=== PATIENT | female | born 1950 | race Two or more races ===

== ENCOUNTER 2016-11-05 09:16 | Inpatient (IN) | payer OTHER ==
[2016-10-30 14:56] VITALS: BMI 34.7
[2016-11-05] MEDS ORDERED: GABAPENTIN 300 MG CAPSULE (FP) PO ONE (09:33)
[2016-11-05] MEDS ORDERED: CEFAZOLIN 2 GM in DEXTROSE 5%-WATER - 100 ML IVPB ONE (09:33)
[2016-11-05] MEDS ORDERED: oxyCODONE HCL 10 MG SUSTAINED ACTING TABLET PO STA (09:33)
[2016-11-05] MEDS ORDERED: GELATIN, ABSORBABLE 100 EACH SPONGE TP ONE (12:17)
[2016-11-05] MEDS ORDERED: THROMBIN (BOVINE) 5,000 UNIT VIAL TP ONE (12:17)
[2016-11-05] MEDS ORDERED: LIDOCAINE 1%-EPI 1:100,000 30 ML MDV IJ ONE ×2 (12:17)
[2016-11-05] MEDS ORDERED: PROPOFOL 20 ML ONE ×5 (12:38→15:27)
[2016-11-05] MEDS ORDERED: MIDAZOLAM HCL 2 MG/2 ML SINGLE DOSE VIAL ONE (12:38)
[2016-11-05] MEDS ORDERED: ONDANSETRON 4 MG/2 ML VIAL ONE (12:38)
[2016-11-05] MEDS ORDERED: ceFAZolin SODIUM 1 GM VIAL ONE ×2 (12:38→13:40)
[2016-11-05] MEDS ORDERED: DEXAMETHASONE SOD PHOSPHATE 4 MG/1 ML VIAL ONE (12:38)
[2016-11-05] MEDS ORDERED: KETOROLAC TROMETHAMINE 30 MG/1 ML VIAL ONE (12:38)
[2016-11-05] MEDS ORDERED: ROCURONIUM BROMIDE 50 MG/5 ML VIAL ONE (12:38)
[2016-11-05] MEDS ORDERED: LIDOCAINE HCL/PF 2% SDV 5ML VIAL ONE (12:38)
[2016-11-05] MEDS ORDERED: BUPIVACAINE HCL/PF 2.5 MG/ML - 30 ML VIAL IJ ONE (12:56)
--- NOTE | 2016-11-05 13:15 | HP ---
History & Physical Update - History History: No Change - Physical Physical: No Change - Assessment Assessment: No Change - Plan Plan: No Change (Prior to surgery, c/o low back pain radiating down RLE. This is my first time meeting the patient. i informed her that I iwill be assisting Dr. Robison for the procedure today. Patient is fine with that.)
[2016-11-05] MEDS ORDERED: LIDOCAINE 1%/EPI 1:100000 (50 ML MULTI DOSE VIAL) INF ONE (13:55)
[2016-11-05] MEDS ORDERED: NEOSTIGMINE METHYLSULFATE 0.5 MG/ML - 10 ML MDV ONE (15:44)
[2016-11-05] MEDS ORDERED: BUPIVACAINE HCL/PF 0.25% (2.5MG/ML) 10 ML VIAL IJ ONE (16:00)
[2016-11-05] MEDS ORDERED: ONDANSETRON 4 MG/2 ML VIAL IVPB PRN (16:12)
[2016-11-05] MEDS ORDERED: CYCLOBENZAPRINE HCL 10 MG TABLET (FP) PO PRN (16:12)
[2016-11-05] MEDS ORDERED: morphine CARPU-JECT 4 MG/1 ML DISP.SYRIN IVPUSH PRN (16:12)
[2016-11-05] MEDS ORDERED: oxyCODONE HCL 5 MG TABLET PO PRN (16:12)
[2016-11-05] MEDS ORDERED: LACTATED RINGERS SOLUTION 1,000 ML IV SCH (16:15)
[2016-11-05] MEDS ORDERED: traMADol HCL 50 MG TABLET PO PRN (16:15)
[2016-11-05] MEDS: KETOROLAC TROMETHAMINE 30 MG/1 ML VIAL IVPUSH PRN ×2 (16:35→22:46)
[2016-11-05] MEDS: diazePAM CARPU-JECT 10 MG/2 ML DISP.SYRIN IVPUSH ONE ×2 (16:37→21:43)
[2016-11-05] MEDS: ACETAMINOPHEN 1000 MG/100 ML VIAL (NON FORMULARY) IVPB SCH ×3 (16:45→23:53)
--- NOTE | 2016-11-05 18:53 | OP ---
Operative Note - Note: Operative Date: 11/05/16 Pre-Operative Diagnosis: Spondylolithesis with lumbar radiculopathy Operation: TLIF L5-S1 Post-Operative Diagnosis: Same as Pre-op Surgeon: Blake Robison Concrete Analyst: Chetan Villalba Anesthesiologist/LANDSCAPE HORTICULTURE INSTRUCTOR: Rolando Oliver Anesthesia: General Estimated Blood Loss (mls): 20 Fluid Volume Replaced (mls): 1,000 Operative Report Dictated: Yes
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
[2016-11-05] MEDS: CEFAZOLIN (PRE-DOCKED) 50 ML IVPB SCH (21:23)
[2016-11-05] MEDS: oxyCODONE HCL 5 MG TABLET PO PRN (21:24)
[2016-11-05] MEDS: diphenhydrAMINE HCL 25 MG CAPSULE (FP) PO SCH (21:24)
[2016-11-05] MEDS: INSULIN DETEMIR 100 UNITS/ML MDV SQ SCH ×2 (21:25→22:48)
[2016-11-05] MEDS: GABAPENTIN 300 MG CAPSULE (FP) PO SCH (21:25)
[2016-11-05] MEDS: EPOETIN ALFA 40,000 UNIT/1 ML VIAL SQ SCH (21:43)
[2016-11-05] MEDS ORDERED: PATIENT'S OWN MEDICATION (NON-FORMULARY) (Insulin Glargine,Hum.Rec.Anlog 15 UNITS) SQ SCH ×2 (22:00)
[2016-11-05] MEDS ORDERED: PATIENT'S OWN MEDICATION (NON-FORMULARY) (Gabapentin [Gabapentin] 600 MG) PO SCH (22:00)
[2016-11-06] MEDS: oxyCODONE HCL 5 MG TABLET PO PRN ×2 (03:39→21:49)
[2016-11-06] MEDS: ACETAMINOPHEN 1000 MG/100 ML VIAL (NON FORMULARY) IVPB SCH (04:35)
[2016-11-06] MEDS: CEFAZOLIN (PRE-DOCKED) 50 ML IVPB SCH (04:35)
[2016-11-06] MEDS: GABAPENTIN 300 MG CAPSULE (FP) PO SCH ×3 (05:06→21:49)
[2016-11-06] MEDS: diphenhydrAMINE HCL 25 MG CAPSULE (FP) PO SCH ×2 (05:06→14:00)
[2016-11-06] MEDS: FUROSEMIDE 40 MG TABLET (FP) PO SCH (05:06)
[2016-11-06] MEDS ORDERED: ACETAMINOPHEN 325 MG TABLET (FP) PO SCH (06:00)
[2016-11-06] MEDS: metFORMIN HCL 500 MG TABLET (FP) PO SCH ×2 (08:45→16:30)
[2016-11-06 08:48] LABS: ANION GAP 5 (8-16); CALCIUM 8.2 mg/dl (8.4-10.2); CO2 25 mmol/L (22-28); CREATININE 0.9 mg/dl (0.6-1.3); GLUCOSE,RANDOM 93 mg/dl (74-106)
--- NOTE | 2016-11-06 09:15 | PN ---
Progress Note (short form) - Note Progress Note: POD#1 Pt seen earlier this am and then after breakfast. She had nausea and emesis after breakfast. No CP or SOB. She is ambulating and voiding on her own. Vital Signs Period Temp Pulse Resp BP Sys/Bassett Pulse Ox Last 24 Hr 98.0 F-98.8 F 75-94 12-20 82-149/42-99 100-100 ADRIANA-265 serosangrenous PE: GEN: A&0x3 CV: RRR Lungs: CTA b/l Back: dressing c/d/i ABD: soft, non-distended, non-tender Neuro: aitchbone breaker strength equal b/l, dorsi/plantar/EHL flexion 5/5 b/l. LE: no calf tenderness or swelling noted b/l to LE CBC, BMP 11/06/16 07:45 Laboratory Tests 11/05/16 11/06/16 21:33 06:40 POC Glucometer 103 97 A/P: 66 yo female s/p TLIF L5-S1, POD#1 Plan for PT today Will continue the drain, out serosangrenous but high over night, continue to monitor the outpt OOB and ambulate xray cancelled, will complete xray after drain removed pain management, standing ultram/tylenol and oxycodne prn IV zofran for nausea, nursing staff holding oral diabetic medications until intake ok D/w Dr. Robison, will monitor progress with PT today. Pt normally ambulates with a walker Discontinue LR Addendum: Pts H&H low from this morning labs and on repeat values. 2 units of PRBC ordered and called lab, blood should be ready around 1700. Her night lasix dose on hold. The patient is receiving a bolus x1 now. Repeat blood pressure 89/46. She has no CP, SOB and denies dizziness. I spoke with the medical team for a consult, they have requested troponin/ekg to be done now and at 2200 and agree with PRBC. The patient has a history of anemia, on procrit with a starting H&H of 01/08. Dr. Robison was updated on his pt's condition and agrees with the above treatment. <Cassidy Freitas - Last Filed: 11/06/16 16:09> - Note Progress Note: Patient seen and examined Agree with Above Maintain drain PT <Blake Robison - Last Filed: 11/08/16 11:56>
[2016-11-06] MEDS ORDERED: PATIENT'S OWN MEDICATION (NON-FORMULARY) (Spironolactone [Spironolactone] 100 MG) PO SCH (10:00)
[2016-11-06] MEDS: CALCITRIOL 0.25 MCG CAPSULE (FP) PO SCH (10:00)
[2016-11-06] MEDS: ATENOLOL 50 MG TABLET (FP) PO SCH ×2 (10:00)
[2016-11-06] MEDS ORDERED: POTASSIUM CHLORIDE TABS 20 MEQ TABLET.ER (FP) PO SCH (10:00)
[2016-11-06] MEDS: SPIRONOLACTONE 25 MG TABLET (FP) PO SCH (10:00)
[2016-11-06] MEDS ORDERED: LISINOPRIL 20 MG TABLET (FP) PO SCH (10:00)
[2016-11-06] MEDS ORDERED: CHOLECALCIFEROL (VITAMIN D3) 1,000 UNIT TABLET (FP) PO SCH (10:00)
[2016-11-06] MEDS ORDERED: PATIENT'S OWN MEDICATION (NON-FORMULARY) (Potassium Chloride [Potassium Chloride] 20 MEQ) PO SCH (10:00)
[2016-11-06] MEDS: PANTOPRAZOLE 40 MG TABLET (FP) PO SCH (10:00)
[2016-11-06] MEDS: traMADol HCL 50 MG TABLET PO SCH ×2 (10:15→21:50)
[2016-11-06] MEDS: ACETAMINOPHEN 325 MG TABLET (FP) PO SCH (10:15)
[2016-11-06] MEDS ORDERED: traMADol HCL 50 MG TABLET PO SCH (12:00)
[2016-11-06 12:48] LABS: MCH 21.3 pg (25.7-33.7); MCHC 30.3 g/dl (32.0-36.0); MEAN CELL VOLUME 70.4 fl (80-96); MEAN PLT VOLUME 8.4 fl (7.5-11.1); PLATELET COUNT 161 K/MM3 (134-434); RDW 18.6 % (11.6-15.6); WHITE BLOOD COUNT 4.6 K/mm3 (4.0-10.8)
[2016-11-06 15:39] LABS: MCH 21.5 pg (25.7-33.7); MCHC 30.6 g/dl (32.0-36.0); MEAN CELL VOLUME 70.4 fl (80-96); MEAN PLT VOLUME 8.1 fl (7.5-11.1); PLATELET COUNT 143 K/MM3 (134-434); RDW 18.3 % (11.6-15.6); WHITE BLOOD COUNT 4.6 K/mm3 (4.0-10.8)
[2016-11-06] MEDS ORDERED: SODIUM CHLORIDE 500 ML IV STA (15:45)
[2016-11-06 17:16] LABS: CPK(DFH) 813 IU/L (26-140)
[2016-11-06] MEDS ORDERED: SODIUM CHLORIDE 0.9% 500 ML INFUS.BAG IV ONE (17:44)
[2016-11-06 17:46] LABS: TROPONIN I (DFP) < 0.03 ng/ml (0.03-0.50)
[2016-11-06 17:47] LABS: CK MB 19.2 ng/ml (0.3-4.0)
[2016-11-06] MEDS ORDERED: ACETAMINOPHEN 325 MG TABLET (FP) PO ONE (18:45)
[2016-11-06] MEDS ORDERED: diphenhydrAMINE HCL 25 MG CAPSULE (FP) PO ONE (18:45)
[2016-11-06] MEDS: INSULIN DETEMIR 100 UNITS/ML MDV SQ SCH (22:16)
--- NOTE | 2016-11-06 22:23 | CONSULT ---
Consultation: REQUESTING PROVIDER: Dr. Robison CONSULT REQUEST: We have been asked to medically evaluate this patient for postoperative anemia and hypotension. HISTORY OF PRESENT ILLNESS: This is a 66 year old female with extensive PMH as below who presented to the hospital for spine surgery. She underwent posterior TLIF L5-S1 yesterday. Initially today, pt appeared well and was normotensive. She received her normal home BP medications and was noted to be hypotensive later in the day around 230. Her Hgb on am labs was 6.2, down from 7.1 on preop labs. Repeat Hgb was 5.8. 2uPRBC were ordered. She is currently completing her first unit of blood. She reports feeling ok, just with pain. Denies any lightheadedness or dizziness and reports ambulating around the unit this morning. Noted with increased serosanguinous output from drain last night. Past Medical History anemia on procrit-has been anemic for 30+ years, but worsened after bariatric surgery CHF, RV failure venous insufficiency HTN DM with neuropathy and PVD Hepatitis C with cirrhosis aortic stenosis/insufficiency MR/TR gastritis renal insufficiency, worsened by excessive lasix use in past as per pt, followed by renal Past Surgical History hysterectomy bariatric sx 2007 cholecystectomy 2013 R knee arthroscopy B/L TKR Active Medications 3 Generic Name Dose Route Start Last Admin Trade Name Freq PRN Reason Stop Dose Admin Acetaminophen 650 mg 11/06/16 10:15 11/06/16 10:15 Tylenol - PO 650 mg Q8H OSEAS Administration Calcitriol 0.25 mcg 11/06/16 10:00 11/06/16 10:00 Rocaltrol - PO 0.25 mcg DAILY OSEAS Administration Diphenhydramine HCl 25 mg 11/05/16 22:00 11/06/16 14:00 Benadryl - PO Not Given TID OSEAS Epoetin Asa 40,000 unit 11/05/16 17:00 11/05/16 21:43 Procrit - SQ Not Given BIDISMO OSEAS Gabapentin 300 mg 11/05/16 22:00 11/06/16 21:49 Neurontin - PO 300 mg TID OSEAS Administration Insulin Detemir 15 units 11/05/16 22:00 11/05/16 22:48 Levemir Vial SQ Not Given HS OSEAS Metformin HCl 500 mg 11/06/16 08:45 11/06/16 16:30 Glucophage - PO Not Given BIDI [facility] Morphine Sulfate 4 mg 11/05/16 16:12 11/06/16 05:04 Morphine Injection - IVPUSH 4 mg Q4H PRN Administration PAIN Ondansetron HCl 4 mg 11/05/16 16:12 Zofran Injection IVPB Q6H PRN NAUSEA AND/OR VOMITING Oxycodone HCl 10 mg 11/05/16 16:12 11/06/16 21:49 Roxicodone - PO 10 mg Q4H PRN Administration PAIN Oxycodone HCl 5 mg 11/05/16 16:12 Roxicodone - PO Q4H PRN PAIN Pantoprazole Sodium 40 mg 11/06/16 10:00 11/06/16 10:00 Protonix - PO 40 mg DAILY [facility] Administration Pioglitazone HCl 15 mg 11/06/16 07:00 Actos - PO ACBK [facility] Sodium Chloride 100 ml 11/06/16 17:44 11/06/16 14:30 Normal Saline - IV 11/06/16 17:45 100 ml ONCE ONE Administration Spironolactone 100 mg 11/06/16 10:00 11/06/16 10:00 Aldactone - PO 100 mg DAILY [facility] Administration Tramadol HCl 50 mg 11/06/16 10:15 11/06/16 21:50 Ultram - PO 50 mg Q6H [facility] Administration REVIEW OF SYSTEMS: CONSTITUTIONAL: Absent: fever, chills, diaphoresis, generalized weakness, malaise, loss of appetite, weight change HEENT: Absent: rhinorrhea, nasal congestion, throat pain, throat swelling, difficulty swallowing, mouth swelling, ear pain, eye pain, visual changes CARDIOVASCULAR: Absent: chest pain, syncope, palpitations, irregular heart rate, lightheadedness , peripheral edema RESPIRATORY: Absent: cough, shortness of breath, dyspnea with exertion, orthopnea, wheezing, stridor, hemoptysis GASTROINTESTINAL: Absent: abdominal pain, abdominal distension, nausea, vomiting, diarrhea, constipation, melena, hematochezia GENITOURINARY: Absent: dysuria, frequency, urgency, hesitancy, hematuria, flank pain, genital pain MUSCULOSKELETAL: present: back pain Absent: myalgia, arthralgia, joint swelling, neck pain SKIN: Absent: rash, itching, pallor HEMATOLOGIC/IMMUNOLOGIC: Absent: easy bleeding, easy bruising, lymphadenopathy, frequent infections ENDOCRINE: Absent: unexplained weight gain, unexplained weight loss, heat intolerance, cold intolerance NEUROLOGIC: Absent: headache, focal weakness or paresthesias, dizziness, unsteady gait, seizure, mental status changes, bladder or bowel incontinence PSYCHIATRIC: Absent: anxiety, depression, suicidal or homicidal ideation, hallucinations. PHYSICAL EXAMINATION Vital Signs - 24 hr 3 11/05/16 11/06/16 11/06/16 22:46 06:00 08:31 Temperature 98.5 F 98.8 F Pulse Rate 77 88 Respiratory 20 20 20 Rate Blood Pressure 104/55 122/48 O2 Sat by Pulse 100 100 100 Oximetry (%) 3 11/06/16 11/06/16 11/06/16 14:58 15:43 17:43 Temperature 99.2 F 100.8 F H Pulse Rate 84 56 L 89 Respiratory 18 14 16 Rate Blood Pressure 78/50 89/46 102/49 O2 Sat by Pulse 96 100 Oximetry (%) GENERAL: Awake, alert, and fully oriented, in no acute distress. HEAD: Normal with no signs of trauma. EYES: Pupils equal, round and reactive to light, extraocular movements intact, sclera anicteric, conjunctiva clear. No lid lag. EARS, NOSE, THROAT: Ears normal, nares patent, oropharynx clear without exudates. Dry mucous membranes. NECK: Normal range of motion, supple without lymphadenopathy, JVD, or masses. LUNGS: Breath sounds equal, clear to auscultation bilaterally. No wheezes, and no crackles. No accessory muscle use. HEART: Regular rate and rhythm, normal S1 and S2 without murmur, rub or gallop. ABDOMEN: Soft, nontender, not distended, normoactive bowel sounds, no guarding, no rebound, no masses. No hepatomegaly or splenomegaly. MUSCULOSKELETAL: Normal range of motion at all joints. No bony deformities or tenderness. No CVA tenderness. UPPER EXTREMITIES: 2+ pulses, warm, well-perfused. No cyanosis. No clubbing. Cap refill <2 seconds. No peripheral edema. LOWER EXTREMITIES: 2+ pulses, warm, well-perfused. No calf tenderness. No peripheral edema. NEUROLOGICAL: Cranial nerves II-XII intact. Normal speech. Normal gait. PSYCHIATRIC: Cooperative. Good eye contact. Appropriate mood and affect. SKIN: Warm, dry, normal turgor, no rashes or lesions noted. Dressing to lumbar spine C/D/I. serosanguinous fluid noted in hemovac. Laboratory Results - last 24 hr 3 11/06/16 11/06/16 11/06/16 06:40 07:45 07:45 WBC 4.6 RBC 2.90 L Hgb 6.2 L* Hct 20.4 L MCV 70.4 L MCHC 30.3 L RDW 18.6 H Plt Count 161 MPV 8.4 Sodium 138 Potassium 4.4 Chloride 108 H Carbon Dioxide 25 Anion Gap 5 L BUN 16 Creatinine 0.9 POC Glucometer 97 Random Glucose 93 Calcium 8.2 L Creatine Kinase CK-MB (CK-2) Troponin I Blood Type Antibody Screen Antibody Identification Antigen Identification Crossmatch 3 11/06/16 11/06/16 11/06/16 14:30 14:30 14:30 WBC RBC Hgb Hct MCV MCHC RDW Plt Count MPV Sodium Potassium Chloride Carbon Dioxide Anion Gap BUN Creatinine POC Glucometer Random Glucose Calcium Creatine Kinase CK-MB (CK-2) Troponin I Blood Type O POSITIVE O POSITIVE Antibody Screen Positive H Antibody Identification No Result Required. Antigen Identification K Antigen - NEGATIVE Crossmatch See Detail 3 11/06/16 11/06/16 11/06/16 14:30 16:20 16:54 WBC 4.6 RBC 2.69 L Hgb 5.8 L* Hct 18.9 L MCV 70.4 L MCHC 30.6 L RDW 18.3 H Plt Count 143 MPV 8.1 Sodium Potassium Chloride Carbon Dioxide Anion Gap BUN Creatinine POC Glucometer 124 Random Glucose Calcium Creatine Kinase 813 H CK-MB (CK-2) 19.2 H Troponin I < 0.03 L Blood Type Antibody Screen Antibody Identification Antigen Identification Crossmatch ECG: NSR with sinus arrhythmia, rate 86, QTC 435, nonspecific T wave abnormality , No acute St/T changes ASSESSMENT/PLAN: 66yF with PMH Anmeia, CHF, RV failure, HTN, MR/TR, /AI, venous insufficience, NIDDM with neuropathy and PVD, HCV with cirrhosis who presented for lumbar laminectomy and fusion. She underwent same and is now POD#1. Hypotension - given 500mL bolus x 1 - receiving 1st unit of blood, BP improved with same. - cont to monitor. Hold off on further IVF given 2uPRBC and CHF history - d/c home antihypertensives until BP stable. Anemia - 2uPRBC, repeat H/H in am. - hold DVT PPX for now until H/H stable L5-S1 TLIF POD #1 - care as per ortho HTN/CHF - hold all hypertensive meds except spironolactone for now, restart when BP stable. - hold lasix for now, monitor after second unit need for lasix iv DM - cont home medications, BGM well controlled DVT PPX - chemoprophylaxis deferred until H/H stable. cont to encourage ambulation and TEDS/SCDs FEN - hold further IVF for now given still due for 2nd unit PRBC, reassess after PRBC - Repeat BMP in am - diabetic/low sodium diet Dispo: We will continue to follow the patient. Thank you for this consultative opportunity. Visit type - Emergency Visit Emergency Visit: No - New Patient This patient is new to me today: Yes Date on this admission: 11/06/16 - Critical Care Critical Care patient: No
[2016-11-06 22:46] LABS: CPK(DFH) 750 IU/L (26-140)
[2016-11-06 23:05] LABS: CK MB 11.3 ng/ml (0.3-4.0); TROPONIN I (DFP) < 0.03 ng/ml (0.03-0.50)
[2016-11-07] MEDS: traMADol HCL 50 MG TABLET PO SCH ×3 (05:30→21:56)
[2016-11-07] MEDS: metFORMIN HCL 500 MG TABLET (FP) PO SCH ×2 (06:10→14:30)
[2016-11-07] MEDS: GABAPENTIN 300 MG CAPSULE (FP) PO SCH ×2 (06:10→21:54)
[2016-11-07] MEDS: oxyCODONE HCL 5 MG TABLET PO PRN ×2 (06:10→21:57)
[2016-11-07] MEDS: diphenhydrAMINE HCL 25 MG CAPSULE (FP) PO SCH ×3 (06:11→21:55)
[2016-11-07] MEDS: ACETAMINOPHEN 325 MG TABLET (FP) PO SCH ×2 (06:12→09:21)
[2016-11-07] MEDS: PIOGLITAZONE HCL 15 MG TABLET (FP) PO SCH (06:15)
--- NOTE | 2016-11-07 07:22 | PN ---
Physical Exam: SUBJECTIVE: Patient seen and examined, patient reports sharp pain to lower back , denies any paresthesia to the lower extremities. received 2 units of PRBC OBJECTIVE: patient is a 66 y/o female with a past medical history of anemia (s/ p bariatric surgery), HTN, NIDDM, PVD, hep c, aortic stenosis, CKD, gastrits and ckd. Patient is s/p TLIF L5-S1. POD#1. patient was hypotensive severe microcytic anemia, postop day 0. Vital Signs Period Temp Pulse Resp BP Sys/Bassett Pulse Ox Last 24 Hr 98.9 F-100.8 F 56-89 14-20 78-113/45-61 96-100 GENERAL: The patient is awake, alert, and fully oriented, in no acute distress. HEAD: Normal with no signs of trauma. EYES: PERRL, extraocular movements intact, sclera anicteric, conjunctiva clear. No ptosis. ENT: Ears normal, nares patent, oropharynx clear without exudates, moist mucous membranes. NECK: Trachea midline, full range of motion, supple. LUNGS: Breath sounds equal, clear to auscultation bilaterally, no wheezes, no crackles, no accessory muscle use. HEART: Regular rate and rhythm, S1, S2 without murmur, rub or gallop. ABDOMEN: Soft, nontender, nondistended, normoactive bowel sounds, no guarding, no rebound, no hepatosplenomegaly, no masses. EXTREMITIES: 2+ pulses, warm, well-perfused, no edema. SURGICAL SITE: wound well approximated, no erythema noted, hemovac removed by surgical PA NEUROLOGICAL: Cranial nerves II through XII grossly intact. Normal speech, gait not observed. PSYCH: Normal mood, normal affect. SKIN: Warm, dry, normal turgor, no rashes or lesions noted Laboratory Results - last 24 hr CBC WBC 5.2 K/mm3 (4.0-10.8) 11/07/16 07:22 RBC 3.42 M/mm3 (3.60-5.2) L D 11/07/16 07:22 Hgb 7.8 GM/dl (10.7-15.3) L D 11/07/16 07:22 Hct 25.3 % (32.4-45.2) L D 11/07/16 07:22 MCV 73.8 fl (80-96) L 11/07/16 07:22 MCHC 30.9 g/dl (32.0-36.0) L 11/07/16 07:22 RDW 19.0 % (11.6-15.6) H 11/07/16 07:22 Plt Count 147 K/MM3 (134-434) 11/07/16 07:22 MPV 7.8 fl (7.5-11.1) 11/07/16 07:22 Neutrophils % 66.3 % (42.8-82.8) 11/07/16 07:22 Lymphocytes % 17.4 % (8-40) 11/07/16 07:22 Monocytes % 11.7 % (3.8-10.2) H 11/07/16 07:22 Eosinophils % 4.3 % (0-4.5) 11/07/16 07:22 Basophils % 0.3 % (0-2.0) 11/07/16 07:22 CMP Sodium 138 mmol/L (136-145) 11/07/16 07:22 Potassium 4.5 mmol/L (3.5-5.1) 11/07/16 07:22 Chloride 109 mmol/L (98-107) H 11/07/16 07:22 Carbon Dioxide 24 mmol/L (22-28) 11/07/16 07:22 Anion Gap 5 (8-16) L 11/07/16 07:22 BUN 16 mg/dl (7-18) 11/07/16 07:22 Creatinine 0.9 mg/dl (0.6-1.3) 11/07/16 07:22 POC Glucometer 127 UNITS (()) 11/07/16 11:50 Random Glucose 113 mg/dl (74-106) H D 11/07/16 07:22 Calcium 8.0 mg/dl (8.4-10.2) L 11/07/16 07:22 Creatine Kinase 750 IU/L (26-140) H 11/06/16 22:00 CK-MB (CK-2) 11.3 ng/ml (0.3-4.0) H 11/06/16 22:00 Troponin I < 0.03 ng/ml (0.03-0.50) L 11/06/16 22:00 Active Medications Generic Name Dose Route Start Last Admin Trade Name Freq PRN Reason Stop Dose Admin Acetaminophen 650 mg 11/06/16 10:15 11/07/16 06:12 Tylenol - PO 650 mg Q8H OSEAS Administration Calcitriol 0.25 mcg 11/06/16 10:00 11/06/16 10:00 Rocaltrol - PO 0.25 mcg DAILY OSEAS Administration Diphenhydramine HCl 25 mg 11/05/16 22:00 11/07/16 06:11 Benadryl - PO 25 mg TID OSEAS Administration Epoetin Asa 40,000 unit 11/05/16 17:00 11/05/16 21:43 Procrit - SQ Not Given BIDISMO OSEAS Gabapentin 300 mg 11/05/16 22:00 11/07/16 06:10 Neurontin - PO 300 mg TID OSEAS Administration Insulin Detemir 15 units 11/05/16 22:00 11/06/16 22:16 Levemir Vial SQ 15 units HS OSEAS Administration Metformin HCl 500 mg 11/06/16 08:45 11/07/16 06:10 Glucophage - PO 500 mg BIDI [facility] Administration Morphine Sulfate 4 mg 11/05/16 16:12 11/06/16 05:04 Morphine Injection - IVPUSH 4 mg Q4H PRN Administration PAIN Ondansetron HCl 4 mg 11/05/16 16:12 Zofran Injection IVPB Q6H PRN NAUSEA AND/OR VOMITING Oxycodone HCl 10 mg 11/05/16 16:12 11/07/16 06:10 Roxicodone - PO 10 mg Q4H PRN Administration PAIN Oxycodone HCl 5 mg 11/05/16 16:12 Roxicodone - PO Q4H PRN PAIN Pantoprazole Sodium 40 mg 11/06/16 10:00 11/06/16 10:00 Protonix - PO 40 mg DAILY OSEAS Administration Pioglitazone HCl 15 mg 11/06/16 07:00 11/07/16 06:15 Actos - PO 15 mg ACBK OSEAS Administration Spironolactone 100 mg 11/06/16 10:00 11/06/16 10:00 Aldactone - PO 100 mg DAILY OSEAS Administration Tramadol HCl 50 mg 11/06/16 10:15 11/07/16 05:30 Ultram - PO 50 mg Q6H OSEAS Administration ECG: NSR with sinus arrhythmia, rate 86, QTC 435, nonspecific T wave abnormality , No acute St/T changes ASSESSMENT/PLAN: 1) card Hypotension - b/p improved after ns bolus, 2unit of pr bc - continue to hold antihypertensives diastolic congestive heart failure - continue spironolactone and restart lasix 2) heme microcytic anemia excerbated by acute blood loss anemia - hgb 7.8 after 2units of prbc - history of iron deficency anemia continue procrit, advise iron supplements 3) endo - niddm, continue fingersticks ach with regular insulin coverage, continue metformin and glucophage 4) ortho: s/p L5-S1 TLIF POD #1 - pt as per ortho - prn pain medication DVT PPX - chemoprophylaxis deferred until H/H stable. cont to encourage ambulation and TEDS/SCDs FEN - diabetic/low sodium diet Dispo: We will continue to follow the patient. Thank you for this consultative opportunity. Visit type - Emergency Visit Emergency Visit: Yes ED Registration Date: 11/05/16 Care time: The patient presented to the Emergency Department on the above date and was hospitalized for further evaluation of their emergent condition. - New Patient This patient is new to me today: No - Critical Care Critical Care patient: No - Discharge Referral Referred to [facility] Med [facility] No
[2016-11-07] MEDS ORDERED: diazePAM 5 MG TABLET PO PRN (07:56)
[2016-11-07 07:57] LABS: BASOPHIL 0.3 % (0-2.0); EOSINOPHIL 4.3 % (0-4.5); MCH 22.8 pg (25.7-33.7); MCHC 30.9 g/dl (32.0-36.0); MEAN CELL VOLUME 73.8 fl (80-96); MEAN PLT VOLUME 7.8 fl (7.5-11.1); NEUTROPHILS 66.3 % (42.8-82.8); PLATELET COUNT 147 K/MM3 (134-434); WHITE BLOOD COUNT 5.2 K/mm3 (4.0-10.8)
[2016-11-07 08:13] LABS: ANION GAP 5 (8-16); CO2 24 mmol/L (22-28); CREATININE 0.9 mg/dl (0.6-1.3); GLUCOSE,RANDOM 113 mg/dl (74-106)
--- NOTE | 2016-11-07 08:44 | PN ---
Progress Note (short form) - Note Progress Note: POD#2 PT without any c/o CP, SOB, no nausea. She has pain this am after moving to remove the drain. Vital Signs Period Temp Pulse Resp BP Sys/Bassett Pulse Ox Last 24 Hr 98.9 F-100.8 F 56-89 14-20 78-113/45-61 96-100 ADRIANA-serous. 210ml GEN: A&0x3 NAD CV:RRR Lungs: CTA b/l ABD: soft, non-distended, non-tender LE: no calf tenderness or swelling noted b/l, SCDs in place Back : drain removed. suture line c/d/i, no ecchymosis or masses. reapplied new 4x4 tegaderm dressing Neuro: branding specialist strength equal b/l, 5/5 b/l dorsi/plantar/EHL fexion CBC, BMP 11/07/16 07:22 11/07/16 07:22 A/P: 66 yo female s/p TLIF, POD#2 H&H stable today, appropriate level after receiving 2 units PRBC Continue home oral medications today, lasix resumed Added valium, prn for pain XRAY today continue PT oob/ambulate D/w Dr. Robison <Cassidy Freitas - Last Filed: 11/07/16 08:28> - Note Progress Note: Patient seen and examined Agree with above D/C Planning <Blake Robison - Last Filed: 11/08/16 11:59>
[2016-11-07] MEDS: PANTOPRAZOLE 40 MG TABLET (FP) PO SCH (09:13)
[2016-11-07] MEDS: SPIRONOLACTONE 25 MG TABLET (FP) PO SCH (09:13)
[2016-11-07] MEDS: POTASSIUM CHLORIDE TABS 20 MEQ TABLET.ER (FP) PO SCH (09:13)
[2016-11-07] MEDS ORDERED: CYCLOBENZAPRINE HCL 10 MG TABLET (FP) PO SCH (10:00)
[2016-11-07 14:29] LABS: ANISOCYTOSIS 1+; HYPOCHROMIA 2+; MICROCYTOSIS 1+; PLATELET ESTIMATE ADEQUATE (NORMAL)
[2016-11-07] MEDS: INSULIN DETEMIR 100 UNITS/ML MDV SQ SCH (21:55)
[2016-11-08] MEDS: ACETAMINOPHEN 325 MG TABLET (FP) PO SCH ×4 (01:42→09:37)
[2016-11-08] MEDS: traMADol HCL 50 MG TABLET PO SCH ×3 (04:20→09:36)
[2016-11-08] MEDS: PIOGLITAZONE HCL 15 MG TABLET (FP) PO SCH ×2 (06:31→07:19)
[2016-11-08] MEDS: diphenhydrAMINE HCL 25 MG CAPSULE (FP) PO SCH ×2 (06:31→13:59)
[2016-11-08] MEDS: GABAPENTIN 300 MG CAPSULE (FP) PO SCH ×3 (06:32→13:59)
[2016-11-08] MEDS: FUROSEMIDE 40 MG TABLET (FP) PO SCH ×4 (06:32→13:59)
[2016-11-08] MEDS: metFORMIN HCL 500 MG TABLET (FP) PO SCH (06:32)
[2016-11-08] MEDS: CALCITRIOL 0.25 MCG CAPSULE (FP) PO SCH ×2 (07:22→09:36)
[2016-11-08] MEDS: oxyCODONE HCL 5 MG TABLET PO PRN (08:20)
[2016-11-08 08:41] LABS: BASOPHIL 0.5 % (0-2.0); EOSINOPHIL 5.6 % (0-4.5); MCH 22.4 pg (25.7-33.7); MCHC 30.4 g/dl (32.0-36.0); MEAN CELL VOLUME 73.5 fl (80-96); MEAN PLT VOLUME 8.6 fl (7.5-11.1); NEUTROPHILS 51.8 % (42.8-82.8); PLATELET COUNT 168 K/MM3 (134-434); RDW 18.7 % (11.6-15.6); WHITE BLOOD COUNT 5.6 K/mm3 (4.0-10.8)
[2016-11-08 08:45] LABS: ANION GAP 6 (8-16); CALCIUM 8.3 mg/dl (8.4-10.2); CO2 26 mmol/L (22-28); CREATININE 0.9 mg/dl (0.6-1.3); GLUCOSE,RANDOM 82 mg/dl (74-106)
[2016-11-08] MEDS: EPOETIN ALFA 40,000 UNIT/1 ML VIAL SQ SCH ×2 (09:17→09:18)
--- NOTE | 2016-11-08 09:32 | PN ---
Progress Note (short form) - Note Progress Note: POD #3 Seen evaluated patient this morning with Dr. Robison. Alert. Sitting in chair at bedside eating breakfast. She is oob and ambulating hallways with PT. Patient's RLE pain (present prior too surgery) almost resolved. Denies n/v/f/c, CP, SOB. Last Vital Signs Temp Pulse Resp BP Pulse Ox 98.3 F 83 19 122/58 95 11/08/16 06:00 11/08/16 06:00 11/08/16 06:00 11/08/16 06:00 11/08/16 06:00 CBC, BMP 11/08/16 07:39 11/08/16 07:39 PE GEN: A&0x3 NAD CV:RRR Lungs: CTA b/l ABD: soft, NT. ND. LE: no calf tenderness or swelling noted b/l, SCDs in place Back: dressing c/d/i. Mild soft tissue inflammation without collection. Neuro: director talent strength equal b/l, 5/5 b/l dorsi/plantar/EHL fexion <Chetan Villalba P - Last Filed: 11/08/16 09:32> - Note Progress Note: Patient seen and examined Agree with above D/C Planning <Blake Robison - Last Filed: 11/08/16 12:13> Problem List - Problems (1) Spondylolisthesis at L5-S1 level Assessment/Plan: POD #3 s/p Posterior lumbar decompression/fusion/instrumentation, transforaminal lumbar interbody fusion L5-S1 with allograft and neuromonitoring Doing well. Diet as tolerated DC to REHAB today. Code(s): M43.17 - SPONDYLOLISTHESIS, LUMBOSACRAL REGION <Chetan Villalba P - Last Filed: 11/08/16 09:32>
[2016-11-08 09:35] VITALS: BP 110/55; PULSE 85; TEMP 98.5
[2016-11-08] MEDS: PANTOPRAZOLE 40 MG TABLET (FP) PO SCH (09:36)
[2016-11-08] MEDS: POTASSIUM CHLORIDE TABS 20 MEQ TABLET.ER (FP) PO SCH (09:36)
[2016-11-08] MEDS: SPIRONOLACTONE 25 MG TABLET (FP) PO SCH (09:37)
[2016-11-08] MEDS ORDERED: FERROUS SO4 325 MG TABLET (FP) PO SCH (10:00)
--- NOTE | 2016-11-08 10:11 | PN ---
Physical Exam: SUBJECTIVE: Patient seen and examined OBJECTIVE: Vital Signs Period Temp Pulse Resp BP Sys/Bassett Pulse Ox Last 24 Hr 98.3 F-98.7 F 70-86 18-19 110-122/55-61 95-99 GENERAL: The patient is awake, alert, and fully oriented, in no acute distress. HEAD: Normal with no signs of trauma. EYES: PERRL, extraocular movements intact, sclera anicteric, conjunctiva clear. No ptosis. ENT: Ears normal, nares patent, oropharynx clear without exudates, moist mucous membranes. NECK: Trachea midline, full range of motion, supple. LUNGS: Breath sounds equal, clear to auscultation bilaterally, no wheezes, no crackles, no accessory muscle use. HEART: Regular rate and rhythm, S1, S2 without murmur, rub or gallop. ABDOMEN: Soft, nontender, nondistended, normoactive bowel sounds, no guarding, no rebound, no hepatosplenomegaly, no masses. EXTREMITIES: 2+ pulses, warm, well-perfused, no edema. NEUROLOGICAL: Cranial nerves II through XII grossly intact. Normal speech, gait not observed. PSYCH: Normal mood, normal affect. SKIN: Warm, dry, normal turgor, no rashes or lesions noted Laboratory Results - last 24 hr 11/07/16 11/07/16 11/07/16 07:22 11:50 21:50 WBC RBC Hgb Hct MCV MCHC RDW Plt Count MPV Neutrophils % Lymphocytes % Monocytes % Eosinophils % Basophils % Platelet Estimate Adequate Hypochromic-Microcytic 2+ Anisocytosis 1+ Microcytosis 1+ Morphology Comment Slide scanned Sodium Potassium Chloride Carbon Dioxide Anion Gap BUN Creatinine POC Glucometer 127 103 Random Glucose Calcium 11/08/16 11/08/16 11/08/16 06:37 07:39 07:39 WBC 5.6 RBC 3.50 L Hgb 7.8 L Hct 25.7 L MCV 73.5 L MCHC 30.4 L RDW 18.7 H Plt Count 168 MPV 8.6 D Neutrophils % 51.8 D Lymphocytes % 29.7 D Monocytes % 12.4 H Eosinophils % 5.6 H Basophils % 0.5 Platelet Estimate Hypochromic-Microcytic Anisocytosis Microcytosis Morphology Comment Sodium 139 Potassium 4.5 Chloride 107 Carbon Dioxide 26 Anion Gap 6 L BUN 13 Creatinine 0.9 POC Glucometer 82 Random Glucose 82 D Calcium 8.3 L Active Medications Generic Name Dose Route Start Last Admin Trade Name Freq PRN Reason Stop Dose Admin Acetaminophen 650 mg 11/06/16 10:15 11/08/16 09:37 Tylenol - PO 650 mg Q8H [facility] Administration Calcitriol 0.25 mcg 11/06/16 10:00 11/08/16 09:36 Rocaltrol - PO 0.25 mcg DAILY [facility] Administration Diazepam 5 mg 11/07/16 07:56 11/07/16 21:54 Valium - PO 5 mg BID PRN Administration PAIN Diphenhydramine HCl 25 mg 11/05/16 22:00 11/08/16 06:31 Benadryl - PO 25 mg TID [facility] Administration Ferrous Sulfate 325 mg 11/08/16 10:00 11/08/16 09:37 Feosol - PO 325 mg BID [facility] Administration Furosemide 40 mg 11/07/16 14:00 11/08/16 07:22 Lasix - PO Not Given BID@0600,1400 [facility] Gabapentin 300 mg 11/05/16 22:00 11/08/16 07:22 Neurontin - PO Not Given TID [facility] Insulin Detemir 15 units 11/05/16 22:00 11/07/16 21:55 Levemir Vial SQ Not Given [facility] Metformin HCl 500 mg 11/06/16 08:45 11/08/16 06:32 Glucophage - PO 500 mg BIDI [facility] Administration Morphine Sulfate 4 mg 11/05/16 16:12 11/06/16 05:04 Morphine Injection - IVPUSH 4 mg Q4H PRN Administration PAIN Ondansetron HCl 4 mg 11/05/16 16:12 Zofran Injection IVPB Q6H PRN NAUSEA AND/OR VOMITING Oxycodone HCl 10 mg 11/05/16 16:12 11/08/16 08:20 Roxicodone - PO 10 mg Q4H PRN Administration PAIN Oxycodone HCl 5 mg 11/05/16 16:12 Roxicodone - PO Q4H PRN PAIN Pantoprazole Sodium 40 mg 11/06/16 10:00 11/08/16 09:36 Protonix - PO 40 mg DAILY [facility] Administration Pioglitazone HCl 15 mg 11/06/16 07:00 11/08/16 07:19 Actos - PO Not Given [facility] Potassium Chloride 20 meq 11/07/16 10:00 11/08/16 09:36 K-Dur - PO 20 meq DAILY [facility] Administration Spironolactone 100 mg 11/06/16 10:00 11/08/16 09:37 Aldactone - PO 100 mg DAILY [facility] Administration Tramadol HCl 50 mg 11/06/16 10:15 11/08/16 09:36 Ultram - PO 50 mg Q6H [facility] Administration ASSESSMENT/PLAN:
--- NOTE | 2016-11-08 11:45 | DS ---
Physical Exam: SUBJECTIVE: Patient seen and examined, patient reports feeling much better, reports a dull ache to lower back OBJECTIVE: Patient is a 66 year old female with extensive PMH as below, she presented to the hospital on 11/05/16 for spine surgery. She underwent posterior TLIF L5-S1 on 11/05/16. Past Medical History anemia on procrit-has been anemic for 30+ years, but worsened after bariatric surgery CHF, RV failure venous insufficiency HTN DM with neuropathy and PVD Hepatitis C with cirrhosis aortic stenosis/insufficiency MR/TR gastritis renal insufficiency, worsened by excessive lasix use in past as per pt, followed by renal Past Surgical History hysterectomy bariatric sx 2007 cholecystectomy 2013 R knee arthroscopy B/L TKR Vital Signs Temperature 98.5 F 11/08/16 09:31 Pulse Rate 85 11/08/16 09:31 Respiratory Rate 18 11/08/16 09:31 Blood Pressure 110/55 11/08/16 09:31 O2 Sat by Pulse Oximetry (%) 95 11/08/16 06:00 PHYSICAL EXAM GENERAL: The patient is awake, alert, and fully oriented, in no acute distress. HEAD: Normal with no signs of trauma. EYES: PERRL, extraocular movements intact, sclera anicteric, conjunctiva clear. ENT: Ears normal, nares patent, oropharynx clear without exudates, moist mucous membranes. NECK: Trachea midline, full range of motion, supple. LUNGS: Breath sounds equal, clear to auscultation bilaterally, no wheezes, no crackles, no accessory muscle use. HEART: Regular rate and rhythm, S1, S2 without murmur, rub or gallop. ABDOMEN: Soft, nontender, nondistended, normoactive bowel sounds, no guarding, no rebound, no hepatosplenomegaly, no masses. EXTREMITIES: 2+ pulses, warm, well-perfused, no edema. NEUROLOGICAL: Cranial nerves II through XII grossly intact. Normal speech, gait not observed. PSYCH: Normal mood, normal affect. SKIN: Warm, dry, normal turgor, no rashes or lesions noted. LABS CBC,CMP WBC 5.6 K/mm3 (4.0-10.8) 11/08/16 07:39 RBC 3.50 M/mm3 (3.60-5.2) L 11/08/16 07:39 Hgb 7.8 GM/dl (10.7-15.3) L 11/08/16 07:39 Hct 25.7 % (32.4-45.2) L 11/08/16 07:39 MCV 73.5 fl (80-96) L 11/08/16 07:39 MCHC 30.4 g/dl (32.0-36.0) L 11/08/16 07:39 RDW 18.7 % (11.6-15.6) H 11/08/16 07:39 Plt Count 168 K/MM3 (134-434) 11/08/16 07:39 MPV 8.6 fl (7.5-11.1) D 11/08/16 07:39 Neutrophils % 51.8 % (42.8-82.8) D 11/08/16 07:39 Lymphocytes % 29.7 % (8-40) D 11/08/16 07:39 Monocytes % 12.4 % (3.8-10.2) H 11/08/16 07:39 Eosinophils % 5.6 % (0-4.5) H 11/08/16 07:39 Basophils % 0.5 % (0-2.0) 11/08/16 07:39 Platelet Estimate Adequate (NORMAL) 11/07/16 07:22 Hypochromic-Microcytic 2+ 11/07/16 07:22 Anisocytosis 1+ 11/07/16 07:22 Microcytosis 1+ 11/07/16 07:22 Morphology Comment Slide scanned 11/07/16 07:22 Sodium 139 mmol/L (136-145) 11/08/16 07:39 Potassium 4.5 mmol/L (3.5-5.1) 11/08/16 07:39 Chloride 107 mmol/L (98-107) 11/08/16 07:39 Carbon Dioxide 26 mmol/L (22-28) 11/08/16 07:39 Anion Gap 6 (8-16) L 11/08/16 07:39 BUN 13 mg/dl (7-18) 11/08/16 07:39 Creatinine 0.9 mg/dl (0.6-1.3) 11/08/16 07:39 POC Glucometer 82 UNITS (()) 11/08/16 06:37 Random Glucose 82 mg/dl (74-106) D 11/08/16 07:39 Calcium 8.3 mg/dl (8.4-10.2) L 11/08/16 07:39 Creatine Kinase 750 IU/L (26-140) H 11/06/16 22:00 CK-MB (CK-2) 11.3 ng/ml (0.3-4.0) H 11/06/16 22:00 Troponin I < 0.03 ng/ml (0.03-0.50) L 11/06/16 22:00 HOSPITAL COURSE: The patient was admitted to the Med-Surg Unit after an elective repair of her spondylolithesis with lumbar radiculopathy, she is now, s/p TLIF L5-S1 on . Initially on post op day 0, 11/05/16. Patient appeared well and was normotensive. The day of surgery, the patient ambulated the hallways with assistance. She received her normal home BP medications and was noted to be hypotensive later in the day around 1430. Her Hgb on am labs was 6.2, down from 7.1 on preop labs. Repeat Hgb was 5.8. 2uPRBC were ordered and given. Blood pressure improved after 2 units of PRBC and normal saline bolus. All antihypertensive was held. Narcotic and non-narcotic pain management control was achieved with an oral and IV approach. POD #1, the surgical drain was removed fully intact and without incident. An xray was obtained and confirmed hardware placement at level of L5-S1, no fractures or dislocations. Marie- operative IV ABX were administered. Patient has past medical history of diastolic congestive heart failure. spironolactone and lasix was given. Patient has a past medical history of microcytic anemia exacerbated by acute blood loss anemia. hgb is now stable at 7.8 after 2units of prbc. She has a past medical history of NIDDM. She was placed on fingersticks achs with regular insulin coverage, metformin and glucophage was continued. The patient ambulated with Physical Therapy and short term rehab were recommended upon discharge. Above plan discussed with Dr. Robison and agreed. Date of Admission:11/05/16 Date of Discharge: 11/08/16 Minutes to complete discharge: 45 Visit type - Case Type Case Type: Scheduled Admission - Emergency Emergency Visit: No - New patient This patient is new to me today: No - Critical Care Critical Care patient: No
--- NOTE | 2016-11-08 14:47 | EKG ---
Test Reason : Blood Pressure : / mmHG Vent. Rate : 086 BPM Atrial Rate : 086 BPM P-R Int : 140 ms QRS Dur : 072 ms QT Int : 364 ms P-R-T Axes : 024 -08 -16 degrees QTc Int : 435 ms NORMAL SINUS RHYTHM WITH SINUS ARRHYTHMIA NONSPECIFIC T WAVE ABNORMALITY ABNORMAL ECG NO PREVIOUS ECGS AVAILABLE Confirmed by KARI DENISE MD ([id number]) on 11/08/2016 2:47:17 PM Referred By: Blake Robison Confirmed By:KARI DENISE MD
== END 2016-11-08 13:00 | DRG 460 ==
LOC: FM/S 09:16
PROVIDERS: ADMIT Orthopaedic Surgery Orthopaedic Surgery of the Spine; ATTEND Orthopaedic Surgery Orthopaedic Surgery of the Spine
PROC: 0SG30A1 (ICD-10-PCS; principal; 2016-11-05 14:05)
PROC: 30233N1 Transfusion of Nonautologous Red Blood Cells into Peripheral Vein, Percutaneous Approach (ICD-10-PCS; 2016-11-06)
DX: M43.17 Spondylolisthesis, lumbosacral region (principal); I13.0 Hypertensive heart and chronic kidney disease with heart failure and stage 1 through stage 4 chronic kidney disease, or unspecified chronic kidney disease; I50.32 Chronic diastolic (congestive) heart failure; D62 Acute posthemorrhagic anemia; E11.22 Type 2 diabetes mellitus with diabetic chronic kidney disease; N18.9 Chronic kidney disease, unspecified; E11.40 Type 2 diabetes mellitus with diabetic neuropathy, unspecified; I35.0 Nonrheumatic aortic (valve) stenosis; I95.9 Hypotension, unspecified; I34.0 Nonrheumatic mitral (valve) insufficiency; I36.1 Nonrheumatic tricuspid (valve) insufficiency
CPT/HCPCS: 36415; 36430; 72100-TC; 80048; 82550; 82553; 84484; 85025; 85027; 86850; 86870; 86900; 86901; 86902; 86922; 93005; 94010; 94760; 97116-GP; 97162-GP; P9038; P9058